=== PATIENT | female | born 1975 | race Caucasian/White ===

== ENCOUNTER 2017-06-02 17:04 | Emergency (ER) | payer MEDICAID, SELFPAY ==
[2017-06-02 17:05] VITALS: BP 122/70; PULSE 93; RESP 16; TEMP 36.9; O2SAT 100; BMI 18.5
--- NOTE | 2017-06-02 17:35 | ED.DCSUM_ITS ---
- ER Visit Summary Date of Service: 06/02/17 Chief Complaint: Back pain History of Present Illness: The patient is a 41 F who lives in [place]. She reports that she has low back pain began 4 days ago. She denies any specific injury. She describes as a dull, aching pain that is 10 out of 10 severity. It is worsened by movement or bending. She taken ibuprofen without relief. Radiates down the back of her left leg to the level of her foot. She denies any numbness or weakness. No problems with her bowels or her bladder. No groin numbness. No red flags. No history of IV drug abuse. No fever, chills, abdominal pain, or other complaints. Patient does have a history of chronic back pain. She reports that she had seen Dr. Davis and had had injections prior to his dying. She then followed up with Dr. Diaz who is treating her back pain. When his office was rated by the [facility] and he closed she went through withdrawal. States that she has not had any opiate-based medication since that time. Physical Examination: Vitals: Stable. Afebrile. General: A&O x 3. NAD. Cardiovascular exam: Regular rate and rhythm, no murmur, rub or gallop. Respiratory exam: Clear to auscultation bilaterally. No wheezes or stridor. Abdominal exam: Soft, nontender, nondistended, normal bowel sounds. No peritoneal signs. Back: Diffuse moderate tenderness to palpation over the lumbar spine and the paraspinous musculature in the lumbar region. No point tenderness. Negative straight leg bilaterally. 5/5 DF, PF, EHL bilaterally. Normal sensation to light touch throughout. Extremity: No clubbing, cyanosis, or edema. Emergency Department Course and Treatment: Unfortunately the the orders website is not working. The patient is quite forthright with her history. When offered a prescription for oxycodone she opted for 12 pills rather than 20. Patient was given a dose of Kenalog IM, Toradol IM, and 10 mg of oxycodone p.o. Treatment Plan: She will be discharged prescription for 12 Percocet. Instructed to follow-up with pain management for possible further injections in her back. I have cautioned her to avoid opiate-based medications in the future. Return to the emergency department for any worsening symptoms. Disposition: To home in improved and stable condition. Impression: 1. Back pain, acute on chronic. This note was generated with [employer] dictation software. It may contain incorrect words, spelling, and punctuation that were not noted in review of the chart prior to signing ED Disposition - Plan for ED Patient: Chief Complaint: Back Instructions: ED Sciatica Prescriptions: Oxycodone HCl/Acetaminophen [Percocet 5/325] 1 tablet PO Q6H PRN PRN 3 Days #12 tablet PRN Reason: Pain Additional Instructions: Follow-up with pain management for further evaluation and possible injections.
[2017-06-02] MEDS: oxyCODONE 5 MG Tablet 10 MG PO (17:38)
[2017-06-02] MEDS: Ketorolac 60 MG/2 ML Vial IM (17:39)
[2017-06-02] MEDS: Triamcinolone Acetonide 40 MG/ML Vial 80 MG IM (17:39)
[2017-06-02 18:07] VITALS: PULSE 79; O2SAT 100
== END 2017-06-02 18:07 | disposition home or self-care (01) ==
LOC: ED 17:34
PROVIDERS: Emergency Provider Emergency Medicine
DX: M54.5 Low back pain (principal); G89.29 Other chronic pain; K21.9 Gastro-esophageal reflux disease without esophagitis; Z72.0 Tobacco use
CPT/HCPCS: 96372; 99283